=== PATIENT | female | born 2000 | race Caucasian/White ===

== ENCOUNTER 2020-06-03 18:26 | Inpatient (IN) | payer MEDICARE, MEDICAID ==
[~2020-06-03] VITALS: Ht 167.6 cm; Wt 54.5 kg
[~2020-06-03 18:26] MED LIST: FentaNYL CITRATE PF 100 MCG/2 ML VIAL IVP ONE; KETOROLAC TROMETHAMINE 60 MG/2 ML VIAL IM ONE; LIDOCAINE/PF 2% 5 ML VIAL IM ONE; METOCLOPRAMIDE HCL 5 MG/ML 2 ML VIAL IVP ONE; MIDAZOLAM HCL 2 MG/2 ML VIAL IVP ONE; ONDANSETRON HCL 4 MG/2 ML VIAL IVP ONE; PROPOFOL 1% 20 ML VIAL IVP ONE; ROCURONIUM BROMIDE 10 MG/ML 5 ML VIAL IVP ONE
[2020-06-03] MEDS ORDERED: SODIUM CHLORIDE 0.9% 1,000 ML IV ONE (19:45)
[2020-06-03 20:08] LABS: BASOPHILS % (AUTO) 0.3 % (0.0-2.0); EOSINOPHILS % (AUTO) 0 % (1.0-6.0); HEMATOCRIT 38.6 % (36-46); LYMPHOCYTES % (AUTO) 8.8 % (22.0-44.0); MEAN CORPUSCULAR HEMOGLOBIN 30.5 pg (26.0-34.0); MEAN CORPUSCULAR HGB CONC 33.6 G/dL (31.0-37.0); MEAN CORPUSCULAR VOLUME 91 fL (80-100); MONOCYTES % (AUTO) 8.8 % (2.0-9.0); NEUTROPHILS # (AUTO) 9.3 K/uL (1.8-7.7); NEUTROPHILS % (AUTO) 82.1 % (40.0-70.0); PLATELET COUNT (AUTO) 196 K/uL (150-450); RED BLOOD CELL COUNT(AUTO) 4.25 MIL/uL (4.00-5.20); RED CELL DISTRIBUTION WIDTH 14.2 % (11.5-14.5)
[2020-06-03 20:19] LABS: ANION GAP 13 mmol/L (8-16); CALCIUM, TOTAL 9.3 mg/dL (8.8-10.5); CARBON DIOXIDE 23 mmol/L (22-29); CHLORIDE 100 mmol/L (98-107); CREATININE 0.85 mg/dL (0.60-1.30); GLOMERULAR FILTR. RATE CALC > 60 mL/min (>60); GLUCOSE,RANDOM 101 mg/dL (70-110); POTASSIUM 3.3 mmol/L (3.5-5.1); SODIUM SERUM 136 mmol/L (136-145); UREA NITROGEN, BLOOD 13 mg/dL (7-18)
[2020-06-03 20:20] LABS: APPEARANCE,URINE CLOUDY (CLEAR); BILIRUBIN,URINE NEGATIVE (NEGATIVE); GLUCOSE, URINE (UA) NEGATIVE (NEGATIVE); KETONES,URINE TRACE mg/dL (NEGATIVE); LEUKOCYTE ESTERASE ,URINE SMALL (NEGATIVE); NITRATE,URINE NEGATIVE (NEGATIVE); OCCULT BLOOD,URINE LARGE (NEGATIVE); PH,URINE 5.5 (5.0-8.0); PROTEIN,URINE POS 1+ (NEGATIVE); UROBILINOGEN,URINE 0.2 mg/dL (<=1.0)
[2020-06-03 20:22] LABS: BACTERIA,URINE Few /HPF (None Seen); SQUAMOUS EPITHELIAL CELL,UR Moderate /LPF (None Seen); WBC,URINE 26-50 /HPF (0-5)
[2020-06-03] MEDS ORDERED: POTASSIUM CHLORIDE 20 MEQ ER TABLET PO ONE (20:45)
[2020-06-03] MEDS ORDERED: CEPHALEXIN MONOHYDRATE 500 MG CAPSULE PO ONE (20:45)
[2020-06-03 20:48] LABS: ALANINE AMINOTRANSFERASE 21 U/L (12-78); ALBUMIN 3.6 g/dL (3.4-5.0); ALKALINE PHOSPHATASE 67 U/L (46-116); ASPARTATE AMINOTRANSFERASE 15 U/L (15-37); BILIRUBIN,TOTAL 0.7 mg/dL (0.1-1.0); HCG,QUANTITATIVE 5330 mIU/mL (0-6); TOTAL PROTEIN, SERUM 7.9 g/dL (6.4-8.2)
[2020-06-03 21:37] LABS: INR 1.1 (0.9-1.1); PROTHROMBIN TIME 11.8 SEC (9.4-11.6)
[2020-06-03 21:48] LABS: COVID AG,FIA SOURCE NASOPHARYNGEAL
[2020-06-03] MEDS ORDERED: HYDROmorphone 2 MG/ML VIAL IVP PRN (22:45)
[2020-06-03] MEDS ORDERED: MEPERIDINE-PF 25 MG/ML VIAL IVP PRN (22:45)
[2020-06-03] MEDS ORDERED: FentaNYL CITRATE PF 100 MCG/2 ML VIAL IVP PRN (22:45)
[2020-06-03] MEDS ORDERED: 0.9% SODIUM CHLORIDE 10 ML SYRINGE IVP PRN (23:00)
[2020-06-03] MEDS ORDERED: ONDANSETRON HCL 4 MG/2 ML VIAL IVP PRN (23:00)
[2020-06-03] MEDS ORDERED: ACETAMINOPHEN 325 MG TABLET PO PRN (23:00)
[2020-06-03] MEDS ORDERED: BUPIVACAINE/EPI/PF 0.5% 30 ML VIAL ONE (23:06)
[2020-06-03] MEDS ORDERED: SODIUM CL IRRIG SOLN BAG 3,000 ML IRRIG ONE (23:06)
[2020-06-03] MEDS ORDERED: SUGAMMADEX SODIUM 200 MG/2 ML VIAL IVP ONE (23:07)
[2020-06-03] MEDS ORDERED: RINGERS SOLUTION,LACTATED 1,000 ML IV ONE (23:30)
[2020-06-03] MEDS ORDERED: BUPIVACAINE LIPOSOME/PF 1.3%-13.3MG/ML SUSPENSION 10 ML VIAL INJ ONE (23:30)
[2020-06-04] MEDS ORDERED: OxyCODONE HCL/ACETAMINOPHEN 5-325 MG TABLET PO PRN ×2 (00:30)
[2020-06-04] MEDS ORDERED: DiphenhydrAMINE HCL 25 MG CAPSULE PO PRN (00:30)
[2020-06-04 01:20] VITALS: BP 135/61
[2020-06-04] MEDS ORDERED: CEPH250S35 PO (01:24)
[2020-06-04] MEDS ORDERED: OXYC-38 PO (01:26)
[2020-06-04] MEDS ORDERED: KETOROLAC TROMETHAMINE 30 MG/ML VIAL IVP SCH (06:00)
[2020-06-04] MEDS ORDERED: OXYGEN THERAPY IH SCH (08:00)
== END 2020-06-04 02:00 | disposition home or self-care (01) | DRG 544 ==
LOC: EMS 18:26 → 5S 22:51
PROVIDERS: ADMIT Obstetrics & Gynecology; ATTEND Obstetrics & Gynecology
PROC: 10D17ZZ Extraction of Products of Conception, Retained, Via Natural or Artificial Opening (ICD-10-PCS; principal; 2020-06-04)
PROC: 0WJJ4ZZ Inspection of Pelvic Cavity, Percutaneous Endoscopic Approach (ICD-10-PCS; 2020-06-04)
DX: O02.1 Missed abortion (principal); Z20.822 Contact with and (suspected) exposure to COVID-19; Z83.3 Family history of diabetes mellitus; Z98.84 Bariatric surgery status
CPT/HCPCS: 76801; 76817; 86850; 86900; 86901; 87086; 87426; 88305; 99291; A9575; J1885; J2250; J2405; J2704; J2765; J3010; J3490; J7120